=== PATIENT | female | born 1975 | race Caucasian/White ===

== ENCOUNTER 2021-05-19 14:17 | Emergency (ER) | payer OTHER ==
[~2021-05-19] VITALS: Ht 162.6 cm; Wt 70.8 kg
[2021-05-19] MEDS ORDERED: OMEPRAZOLE40 MG PO (14:30)
[2021-05-19] MEDS ORDERED: HUMIRA40 MG/0.4 IM (14:30)
[2021-05-19] MEDS ORDERED: SPIRONOLACTONE100 M3 PO (14:30)
[2021-05-19] MEDS ORDERED: APAP W/CODEINE1 TA2 PO (15:58)
[2021-05-19 16:12] VITALS: BP 94/48
== END 2021-05-19 16:13 | disposition home or self-care (01) ==
LOC: M.ERS 14:17
DX: S51.812A Laceration without foreign body of left forearm, initial encounter (principal); F17.210 Nicotine dependence, cigarettes, uncomplicated; Z90.710 Acquired absence of both cervix and uterus; Z88.1 Allergy status to other antibiotic agents; Z88.8 Allergy status to other drugs, medicaments and biological substances; W22.8XXA Striking against or struck by other objects, initial encounter; Y93.89 Activity, other specified; Y92.89 Other specified places as the place of occurrence of the external cause; Y99.8 Other external cause status